=== PATIENT | male | born 2005 | race Two or more races ===

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

== ENCOUNTER 2025-04-10 16:06 | Emergency (ER) | payer MEDICAID, OTHER ==
[~2025-04-10] VITALS: Ht 172.7 cm; Wt 81.8 kg
[2025-04-10] MEDS ORDERED: IBUP-1492 PO (18:26)
[2025-04-10] MEDS ORDERED: ACET-2247 PO (18:26)
[2025-04-10 18:34] VITALS: BP 110/58; PULSE 84; RESP 16; TEMP 97.7; O2SAT 100
== END 2025-04-10 18:34 | disposition home or self-care (01) ==
LOC: EMS 16:07
DX: S93.402A Sprain of unspecified ligament of left ankle, initial encounter (principal); X50.1XXA Overexertion from prolonged static or awkward postures, initial encounter; Y93.67 Activity, basketball; Y92.89 Other specified places as the place of occurrence of the external cause; Y99.8 Other external cause status
CPT/HCPCS: 29515; 99283